=== PATIENT | male | born 1950 | race Caucasian/White ===

== ENCOUNTER 2017-12-21 19:40 | Inpatient (IN) | payer MEDICARE, MEDICAID ==
[~2017-12-21] VITALS: Ht 170.2 cm; Wt 65.8 kg
[2017-12-21 19:45] VITALS: BP 110/70
[2017-12-21] MEDS ORDERED: ACETAMINOPHEN325 M1 ORAL (19:51)
[2017-12-21] MEDS ORDERED: DUONEB 0.5-3(2.53 ML HHN (19:51)
[2017-12-21] MEDS ORDERED: ZYPREXA10 MG ORAL (19:51)
[2017-12-21] MEDS ORDERED: ATIVAN1 MG ORAL (19:51)
[2017-12-21] MEDS ORDERED: RESTORIL7.5 MG ORAL (19:51)
[2017-12-21] MEDS ORDERED: HALOPERIDOL1 MG ORAL (19:51)
[2017-12-21] MEDS ORDERED: REMERON15 MG ORAL (19:51)
[2017-12-21] MEDS ORDERED: DEPAKOTE250 MG PO (19:51)
--- NOTE | 2017-12-21 19:59 | Emergency Room Report ---
History of Present Illness General Chief Complaint: General Complaint Source: Patient, Medical Record, PMD Present Illness HPI [id number] sent from SNF for ?AMS HPI limited as patient with FTT, poor appetite Patient has audible wheezing, nods head when asked if he has COPD VSS at SNF, afebrile History of : CVA, HTN, COPD, DM, sezrue, bipolar, schizoaffective Allergies: Coded Allergies: No Known Allergies (Unverified , 12/21/17) Patient History Past Medical History: CVA/TIA, other - see hpi Past Surgical History: none, unable to obtain Pertinent Family History: none, unable to obtain Social History: Denies: smoking, alcohol use, drug use Nursing Documentation-PMH Hx Hypertension: Yes Hx COPD: Yes Hx Diabetes: Yes Hx Cerebrovascular Accident: Yes Hx Seizures: Yes Review of Systems All Other Systems: limited - AMS Physical Exam Vital Signs Date Time Temp Pulse Resp B/P (MAP) Pulse Ox O2 Delivery O2 Flow Rate FiO2 12/21/17 19:35 98.5 83 20 110/70 95 Room Air 98.4 Sp02 EP Interpretation: reviewed, normal General Appearance: normal inspection, well appearing, no apparent distress, alert, GCS 15, non-toxic, cachetic, thin, Chronically Ill Head: normocephalic, atraumatic Eyes: bilateral eye PERRL, bilateral eye EOMI ENT: normal ENT inspection, hearing grossly normal, normal pharynx, no angioedema, normal voice, TMs + canals normal, uvula midline, moist mucus membranes Neck: normal inspection, full range of motion, supple, thyroid normal, no meningismus, no bony tend Respiratory: normal inspection, lungs clear, normal breath sounds, no rhonchi, no respiratory distress, no retraction, no accessory muscle use, no wheezing, speaking full sentences Cardiovascular #1: regular rate, rhythm, no edema, no JVD, normal capillary refill Gastrointestinal: normal inspection, normal bowel sounds, non tender, soft, no mass, no peritonitis, non-distended, no guarding, no hernia, no pulsatile mass Genitourinary: no CVA tenderness Musculoskeletal: normal inspection, back normal, normal range of motion, no calf tenderness, pelvis stable, Melvina's Sign negative Neurologic: normal inspection, alert, oriented x3, responsive, flame burner III-XII nml as tested, motor strength/tone normal, cerebellar normal, normal gait, speech normal Psychiatric: normal inspection, judgement/insight normal, mood/affect normal, no suicidal/homicidal ideation, no delusions Skin: normal inspection, normal color, no rash Lymphatic: normal inspection, no adenopathy Medical Decision Making Diagnostic Impression: Primary Impression: FTT (failure to thrive) in adult Additional Impression: COPD exacerbation ER Course VSS, afebrile Patient having COPD exacerbation - improved with nebs, steroids, IV azithro No obvious PNA seen on CXR on ED review Labs: No acute abnormals Endorsed for tele to Dr Díaz as PMD at 845pm PMD requesting admit also for FTT, weakness, not eating EKG Diagnostic Results Rate: normal Rhythm: NSR ST Segments: no acute changes ASA given to the pt in ED: No Rhythm Strip Diag. Results EP Interpretation: yes Rate: 78 Rhythm: NSR, no PVC's, no ectopy Chest X-Ray Diagnostic Results Chest X-Ray Diagnostic Results : Chest X-Ray Ordered: Yes # of Views/Limited/Complete: 1 View Indication: Shortness of Breath EP Interpretation: Yes Interpretation: no consolidation, no effusion, no pneumothorax Impression: No acute disease Electronically Signed by: Dr Cliff Stallings mD Last Vital Signs Date Time Temp Pulse Resp B/P (MAP) Pulse Ox O2 Delivery O2 Flow Rate FiO2 12/21/17 19:35 98.5 83 20 110/70 95 Room Air 98.4 Status: unchanged Disposition: ADMITTED INPATIENT Condition: Serious CLIFF STALLINGS M.D. Dec 21, 2017 19:59
[2017-12-21] MEDS ORDERED: Albuterol ud Inhalation HHN ONE (20:30)
[2017-12-21] MEDS ORDERED: Azithromycin 500 MG in NS 275 ML IV ONE (20:30)
[2017-12-21] MEDS ORDERED: Solu-MEDROL 125mg Inj IVP ONE (20:30)
[2017-12-21 20:43] LABS: BASOPHILS % (AUTO) 1.3 % (0.0-2.0); EOSINOPHILS % (AUTO) 5.8 % (0.0-3.0); HEMATOCRIT 47.5 % (42.0-52.0); HEMOGLOBIN 15.9 G/DL (14.2-18.0); LYMPHOCYTES % (AUTO) 22.7 % (20.0-45.0); MEAN CORPUSCULAR VOLUME 86 FL (80-99); MONOCYTES % (AUTO) 10.9 % (1.0-10.0); NEUTROPHILS % (AUTO) 59.3 % (45.0-75.0); PLATELET COUNT 231 K/UL (150-450); RED BLOOD COUNT 5.53 M/UL (4.70-6.10); RED CELL DISTRIBUTION WIDTH 14.4 % (11.6-14.8)
[2017-12-21 20:48] LABS: ANION GAP 7 mmol/L (5-15); BLOOD UREA NITROGEN 28 mg/dL (7-18); CALCIUM 9.8 MG/DL (8.5-10.1); CARBON DIOXIDE 32 MMOL/L (21-32); CHLORIDE 100 MMOL/L (98-107); CREATININE 0.7 MG/DL (0.55-1.30); POTASSIUM 4.2 MMOL/L (3.5-5.1); SODIUM 138 MMOL/L (136-145)
[2017-12-21 20:54] LABS: ALANINE AMINOTRANSFERASE 14 U/L (12-78); ALBUMIN 3.6 G/DL (3.4-5.0); ALBUMIN/GLOBULIN RATIO 0.8 (1.0-2.7); ALKALINE PHOSPHATASE 108 U/L (46-116); ASPARTATE AMINO TRANSFERASE 17 U/L (15-37); BILIRUBIN,TOTAL 0.5 MG/DL (0.2-1.0); CREATINE KINASE 76 U/L (26-308)
[2017-12-21] MEDS ORDERED: Azithromycin 500mg Inj IV ONE (21:06)
[2017-12-21 21:11] LABS: APPEARANCE,URINE CLEAR; BILIRUBIN, URINE NEGATIVE (NEGATIVE); GLUCOSE, URINE (UA) NEGATIVE (NEGATIVE); KETONES,URINE NEGATIVE (NEGATIVE); LEUKOCYTE ESTERASE ,URINE 2+ (NEGATIVE); NITRITE,URINE POSITIVE (NEGATIVE); PH,URINE 6 (4.5-8.0); PROTEIN,URINE NEGATIVE (NEGATIVE); UROBILINOGEN,URINE NORMAL MG/DL (0.0-1.0)
[2017-12-21 21:13] LABS: COLOR,URINE YELLOW
[2017-12-21 21:30] VITALS: BP 94/79
[2017-12-21] MEDS ORDERED: Nitroglycerin Subl 0.4mg tab SL PRN (22:15)
[2017-12-21] MEDS ORDERED: Morphine Sulfate 2mg/ml Inj IVP PRN (22:15)
[2017-12-21] MEDS ORDERED: Promethazine/Codeine 5ml UD ORAL PRN (22:15)
[2017-12-21] MEDS ORDERED: Albuterol/Ipratropium 3ml neb HHN PRN (22:15)
[2017-12-21] MEDS ORDERED: LORazepam Inj 2mg/ml 1ml IV PRN (22:15)
[2017-12-21 22:30] VITALS: BP 110/72
[2017-12-21 23:20] VITALS: BP 99/42
[2017-12-22] VITALS: BP 113/71
[2017-12-22] MEDS: Solu-MEDROL 125mg Inj IV SCH ×5 (00:23→23:33)
[2017-12-22 04:00] VITALS: BP 93/62
[2017-12-22] MEDS ORDERED: Zosyn 3.375gm inj ONE (05:30)
[2017-12-22] MEDS: Zosyn 3.375gm q8h **Extended infusion IVPB SCH ×4 (05:47→14:15)
[2017-12-22 05:57] VITALS: BP 95/63
[2017-12-22] MEDS ORDERED: Piperacillin/Tazobactam 2.25 GM in D5W 55 ML IV SCH (06:00)
[2017-12-22 07:50] VITALS: BP 97/61
[2017-12-22] MEDS ORDERED: Heparin 5000 units/ml inj SUBQ SCH (09:00)
[2017-12-22] MEDS ORDERED: Theophylline ER 100mg ORAL SCH (09:00)
--- NOTE | 2017-12-22 10:12 | Diagnostic Imaging Report ---
Indication: Cough, shortness of breath Technique: One view of the chest Comparison: none Findings: Patient is rotated to the left. The lungs and pleural spaces are clear. The heart size is borderline enlarged. The aorta is tortuous and ectatic. Upper mediastinum is unremarkable. Impression: No acute process. Findings as noted
[2017-12-22] MEDS ORDERED: NovoLOG Insulin Flexpen SUBQ SCH (11:30)
[2017-12-22 12:00] VITALS: BP 108/67
--- NOTE | 2017-12-22 13:15 | Consultation ---
History of Present Illness General Date patient seen: Dec 22, 2017 Chief Complaint: General Complaint Reason for Consultation: dyspnea Present Illness HPI 67 year old male with History of CVA, HTN, COPD, DM, seizure, bipolar, schizoaffective sent from SNF for AMS, FTT, poor appetite Patient has audible wheezing, nods head when asked if he has COPD. Pt is admitted to telemetry for acute exacerbation of COPD. Allergies: Coded Allergies: No Known Allergies (Unverified , 12/21/17) Medication History Scheduled Divalproex Sodium* (Depakote*), 500 MG PO TID, (Reported) Haloperidol* (Haldol*), 5 MG ORAL BID, (Reported) Mirtazapine* (Remeron*), 15 MG ORAL BEDTIME, (Reported) Olanzapine* (Zyprexa*), 10 MG ORAL QHS, (Reported) Temazepam* (Restoril*), 7.5 MG ORAL EVERY OTHER DAY, (Reported) Scheduled PRN Acetaminophen* (Acetaminophen 325MG Tablet*), 650 MG ORAL Q4H PRN for For Pain, (Reported) Ipratropium/Albuterol Sulfate (DuoNeb 0.5-3(2.5)mg/3ml), 3 ML HHN Q4HR PRN for Shortness of Breath, (Reported) Lorazepam* (Ativan*), 1 MG ORAL EVERY 6 HOURS PRN for For Anxiety, (Reported) Patient History Healthcare decision maker SOBIA MCDONALD Resuscitation status Full Code Advanced Directive on File Past Medical/Surgical History Past Medical/Surgical History: (1) Dementia (2) Cerebrovascular accident (CVA) Review of Systems All Other Systems: negative except mentioned in HPI Physical Exam General Appearance: WD/WN Lines, tubes and drains: peripheral HEENT: normocephalic, atraumatic Neck: non-tender, normal alignment Respiratory/Chest: chest wall non-tender, lungs clear Cardiovascular/Chest: normal peripheral pulses, normal rate Abdomen: normal bowel sounds, non tender Genitourinary/Rectal: normal genital exam, normal rectal exam Extremities: non-tender Skin Exam: normal pigmentation Last 24 Hour Vital Signs Date Time Temp Pulse Resp B/P (MAP) Pulse Ox O2 Delivery O2 Flow Rate FiO2 12/22/17 07:57 80 18 Room Air 21 12/22/17 07:50 97.7 63 21 97/61 96 Nasal Cannula 2.0 97.7 12/22/17 05:57 60 95/63 12/22/17 04:00 60 12/22/17 04:00 97.0 59 21 93/62 98 Nasal Cannula 2.0 97.0 12/22/17 00:00 66 12/22/17 00:00 97.3 72 21 113/71 95 Nasal Cannula 2.0 97.3 12/21/17 23:25 81 12/21/17 23:20 97.2 66 22 99/42 91 Room Air 97.2 12/21/17 23:10 98.4 77 23 110/72 96 Room Air 21 98.4 12/21/17 22:30 77 23 110/72 96 Room Air 12/21/17 21:30 85 24 94/79 95 Room Air 12/21/17 20:56 81 16 100 Room Air 21 12/21/17 20:49 87 24 Room Air 21 12/21/17 20:46 86 24 96 Room Air 21 12/21/17 19:45 98.4 20 110/70 95 Room Air 98.4 12/21/17 19:35 98.5 83 20 110/70 95 Room Air 98.4 Intake and Output 12/21/17 12/22/17 19:00 07:00 Intake Total 27.5 ml Balance 27.5 ml Intake Oral 0 ml IV Total 27.5 ml # Voids 1 Laboratory Tests Test 12/21/17 20:20 White Blood Count 7.0 K/UL (4.8-10.8) Red Blood Count 5.53 M/UL (4.70-6.10) Hemoglobin 15.9 G/DL (14.2-18.0) Hematocrit 47.5 % (42.0-52.0) Mean Corpuscular Volume 86 FL (80-99) Mean Corpuscular Hemoglobin 28.7 PG (27.0-31.0) Mean Corpuscular Hemoglobin Concent 33.4 G/DL (32.0-36.0) Red Cell Distribution Width 14.4 % (11.6-14.8) Platelet Count 231 K/UL (150-450) Mean Platelet Volume 7.3 FL (6.5-10.1) Neutrophils (%) (Auto) 59.3 % (45.0-75.0) Lymphocytes (%) (Auto) 22.7 % (20.0-45.0) Monocytes (%) (Auto) 10.9 % (1.0-10.0) H Eosinophils (%) (Auto) 5.8 % (0.0-3.0) H Basophils (%) (Auto) 1.3 % (0.0-2.0) Urine Color Yellow Urine Appearance Clear Urine pH 6 (4.5-8.0) Urine Specific [place] 1.020 (1.005-1.035) Urine Protein Negative (NEGATIVE) Urine Glucose (UA) Negative (NEGATIVE) Urine Ketones Negative (NEGATIVE) Urine Occult Blood 1+ (NEGATIVE) H Urine Nitrite Positive (NEGATIVE) H Urine Bilirubin Negative (NEGATIVE) Urine Urobilinogen Normal MG/DL (0.0-1.0) Urine Leukocyte Esterase 2+ (NEGATIVE) H Urine RBC 5-10 /HPF (0 - 0) H Urine WBC 2-4 /HPF (0 - 0) Urine Squamous Epithelial Cells None /LPF (NONE/OCC) Urine Bacteria Few /HPF (NONE) Sodium Level 138 MMOL/L (136-145) Potassium Level 4.2 MMOL/L (3.5-5.1) Chloride Level 100 MMOL/L (98-107) Carbon Dioxide Level 32 MMOL/L (21-32) Anion Gap 7 mmol/L (5-15) Blood Urea Nitrogen 28 mg/dL (7-18) H Creatinine 0.7 MG/DL (0.55-1.30) Estimat Glomerular Filtration Rate > 60 mL/min (>60) Glucose Level 122 MG/DL (74-106) H Calcium Level 9.8 MG/DL (8.5-10.1) Total Bilirubin 0.5 MG/DL (0.2-1.0) Aspartate Amino Transf (AST/SGOT) 17 U/L (15-37) Alanine Aminotransferase (ALT/SGPT) 14 U/L (12-78) Alkaline Phosphatase 108 U/L (46-116) Total Creatine Kinase 76 U/L (26-308) Troponin I 0.000 ng/mL (0.000-0.056) Total Protein 8.4 G/DL (6.4-8.2) H Albumin 3.6 G/DL (3.4-5.0) Globulin 4.8 g/dL Albumin/Globulin Ratio 0.8 (1.0-2.7) L Microbiology Date/Time Source Procedure Growth Status 12/21/17 20:20 Nasal Nares Influenza Types A,B Antigen (DUNIA) - Final Complete Height (Feet): 5 Height (Inches): 7.00 Weight (Pounds): 145 Medications Current Medications Medications (Trade) Dose Ordered Sig/Sneha Route PRN Reason Start Time Stop Time Status Last Admin Dose Admin Albuterol/ Ipratropium (Albuterol/ Ipratropium) 3 ml EVERY 4 HOURS PRN HHN dyspnea 12/21/17 22:15 12/26/17 22:14 Dextrose (Dextrose 50%) STAT PRN IV Hypoglycemia 12/22/17 07:30 01/21/18 07:29 Divalproex Sodium (Depakote) 500 mg TID ORAL 12/22/17 09:00 01/21/18 08:59 12/22/17 12:23 Haloperidol (Haldol) 5 mg BID ORAL 12/22/17 09:00 01/21/18 08:59 12/22/17 08:54 Heparin Sodium (Porcine) (Heparin 5000 units/ml) 5,000 units EVERY 12 HOURS SUBQ 12/22/17 09:00 01/21/18 08:59 12/22/17 08:55 Insulin Aspart (NovoLOG) BEFORE MEALS AND HS SUBQ 12/22/17 11:30 01/21/18 11:29 12/22/17 12:23 Lorazepam (Ativan 2mg/ml 1ml) 0.5 mg Q4H PRN IV For Anxiety 12/21/17 22:15 12/28/17 22:14 Methylprednisolone Sodium Succinate (Solu-MEDROL) 60 mg EVERY 6 HOURS IV 12/22/17 00:00 01/21/18 00:00 12/22/17 12:26 Mirtazapine (Remeron) 15 mg BEDTIME ORAL 12/22/17 21:00 01/21/18 20:59 Morphine Sulfate (Morphine Sulfate) 2 mg EVERY 4 HOURS PRN IVP severe pain 7-10 12/21/17 22:15 12/28/17 22:14 Nitroglycerin (Ntg) 0.4 mg Q5M X 3 DOSES PRN SL Prn Chest Pain 12/21/17 22:15 01/20/18 22:14 Ondansetron HCl (Zofran) 4 mg Q6H PRN IVP Nausea & Vomiting 12/21/17 22:15 01/20/18 22:14 Piperacillin Sod/ Tazobactam Sod 3.375 gm/Sodium Chloride 110 ml @ 27.5 mls/hr EVERY 8 HOURS IVPB 12/22/17 06:00 12/26/17 05:59 12/22/17 05:47 Promethazine HCl/ Codeine (Phenergan with Codeine) 5 ml EVERY 6 HOURS PRN ORAL cough 12/21/17 22:15 01/20/18 22:14 Sodium Chloride 1,000 ml @ 75 mls/hr [id number] IV 12/22/17 08:00 01/21/18 07:59 12/22/17 08:55 Temazepam (Restoril) 15 mg HSPRN PRN ORAL Insomnia 12/21/17 22:15 12/28/17 22:14 Theophylline (Caden-Dur) 100 mg EVERY 12 HOURS ORAL 12/22/17 09:00 01/21/18 08:59 12/22/17 08:54 Assessment/Plan Problem List: (1) COPD exacerbation ICD Codes: J44.1 - Chronic obstructive pulmonary disease with (acute) exacerbation SNOMED: 408060893 (2) FTT (failure to thrive) in adult ICD Codes: R62.7 - Adult failure to thrive SNOMED: 365759657 (3) Dementia ICD Codes: F03.90 - Unspecified dementia without behavioral disturbance SNOMED: 67099310 (4) Cerebrovascular accident (CVA) ICD Codes: I63.9 - Cerebral infarction, unspecified SNOMED: 886798169 Assessment/Plan respiratory treatment IV steroids check sputum swallow evaluation pt/ot dvt prophylaxis ARASH VELIZ Dec 22, 2017 13:15
[2017-12-22 16:00] VITALS: BP 95/56
[2017-12-22] MEDS ORDERED: Nitroglycerin Subl 0.4mg tab SL PRN (16:00)
[2017-12-22] MEDS ORDERED: Albuterol/Ipratropium 3ml neb HHN PRN (17:00)
[2017-12-22] MEDS ORDERED: Morphine Sulfate 2mg/ml Inj IVP PRN (17:00)
[2017-12-22] MEDS: NovoLOG Insulin Flexpen SUBQ SCH ×2 (17:30→21:00)
[2017-12-22] MEDS: Depakote 500mg tab ORAL SCH (18:00)
[2017-12-22] MEDS ORDERED: Promethazine/Codeine 5ml UD ORAL PRN (18:00)
[2017-12-22] MEDS: LORazepam Inj 2mg/ml 1ml IV PRN (18:57)
[2017-12-22] MEDS: Haloperidol 5mg/ml Inj IM SCH (20:14)
--- NOTE | 2017-12-22 20:32 | History and Physical Report ---
DATE OF ADMISSION: 12/21/2017 TIME SEEN: 2 p.m. CONSULTANTS: 1. Kemar Jordan M.D. 2. Veronica Rivera M.D. CHIEF COMPLAINT: COPD exacerbation, shortness of breath, weakness, lethargy, and failure to thrive. BRIEF HISTORY: This is a 67-year-old male from [facility], presented with increased shortness of breath for two days, wheezing, was weak, and not really eating. The patient sent to [facility], diagnosed as above, admitted to telemetry for further care. Currently, confused, sitting on bed. No complaint. Slight short of breath. PAST MEDICAL HISTORY: Encephalopathy, failure to thrive, weakness, and COPD. PAST SURGICAL HISTORY: None. MEDICATIONS: Include Remeron, NovoLog, , Haldol, heparin, Caden-Dur, methylprednisolone, lorazepam, Zofran, and nitroglycerin. ALLERGIES: Denies. SOCIAL HISTORY: Positive smoking. No alcohol. No intravenous drug abuse. FAMILY HISTORY: Noncontributory. REVIEW OF SYSTEMS: No chest pain. Slight short of breath. No nausea, vomiting, or diarrhea. PHYSICAL EXAMINATION: GENERAL: Slightly confused in bed, oriented x1, in no acute distress. Slight short of breath. VITAL SIGNS: Showed temperature is 97 degrees, pulse 80, respirations 18, and blood pressure 97/61. CARDIOVASCULAR: No murmur. LUNGS: Poor exchange bilaterally. ABDOMEN: Bowel sounds positive. Nontender. Nondistended. EXTREMITIES: Show no cyanosis or edema. NEUROLOGIC: The patient moves all extremities, but slightly weak. LABORATORY AND DIAGNOSTIC DATA: Show CBC is normal. BUN 28 and glucose 132. Troponin 0.0. Otherwise, BMP is normal. Urinalysis shows 1+ occult blood and positive nitrites, otherwise normal. ASSESSMENT: 1. Chronic obstructive pulmonary disease exacerbation. 2. Urinary tract infection. 3. Weakness. 4. Failure to thrive. 5. Encephalopathy. 6. History of cerebrovascular accident. PLAN: 1. Continue premeds. 2. OT/PT and dietary evaluation. 3. CBC and BMP in the morning. 4. Dr. Jordan, Dr. Rivera, and Dr. Gurrola to consult. 5. We will continue to follow up this patient medically. Cam Díaz D.O. DR: Rosales JOB#: [id number] CC:
[2017-12-22] MEDS: Heparin 5000 units/ml inj SUBQ SCH (21:00)
[2017-12-22] MEDS: Theophylline ER 100mg ORAL SCH (21:00)
[2017-12-22] MEDS: Piperacillin/Tazobactam 3.375 GM in NS 110 ML IVPB SCH (22:00)
[2017-12-23] VITALS: BP 120/75
[2017-12-23 04:00] VITALS: BP 114/61
[2017-12-23] MEDS: Solu-MEDROL 125mg Inj IV SCH ×4 (05:43→23:58)
[2017-12-23] MEDS: Piperacillin/Tazobactam 3.375 GM in NS 110 ML IVPB SCH (05:43)
[2017-12-23] MEDS: NovoLOG Insulin Flexpen SUBQ SCH ×4 (06:04→20:57)
[2017-12-23 08:00] VITALS: BP 131/64
--- NOTE | 2017-12-23 08:35 | Diagnostic Imaging Report ---
Indication: Dyspnea Technique: One view of the chest Comparison: 12/21/2017 Findings: Suboptimal inspiration. Minimal left basilar atelectasis. There is equivocal mild interstitial prominence and central bronchial wall thickening, appearing similar to the prior study. Lungs and pleural spaces otherwise clear. Heart size is upper limits of normal. The aorta is tortuous and ectatic. Impression: Mild interstitial prominence and bronchial wall thickening, suspect on the basis of chronic bronchitis changes but component of acute interstitial edema also a possibility. Left basilar subsegmental atelectasis
[2017-12-23] MEDS: Heparin 5000 units/ml inj SUBQ SCH ×3 (09:00→20:55)
[2017-12-23] MEDS: Depakote 500mg tab ORAL SCH ×3 (09:09→17:47)
[2017-12-23] MEDS: Haloperidol 5mg/ml Inj IM SCH ×2 (09:09→20:54)
[2017-12-23] MEDS: Theophylline ER 100mg ORAL SCH ×2 (09:09→20:54)
[2017-12-23 12:00] VITALS: BP 127/74
--- NOTE | 2017-12-23 12:21 | General Progress Note ---
Assessment/Plan Problem List: (1) UTI (urinary tract infection) ICD Codes: N39.0 - Urinary tract infection, site not specified SNOMED: 87690130 (2) Cerebrovascular accident (CVA) ICD Codes: I63.9 - Cerebral infarction, unspecified SNOMED: 250185114 (3) COPD exacerbation ICD Codes: J44.1 - Chronic obstructive pulmonary disease with (acute) exacerbation SNOMED: 573156831 (4) Dementia ICD Codes: F03.90 - Unspecified dementia without behavioral disturbance SNOMED: 09813680 (5) FTT (failure to thrive) in adult ICD Codes: R62.7 - Adult failure to thrive SNOMED: 052865347 Status: unchanged Assessment/Plan o2 pulm tx abx ot pt diet cbc bmp am Subjective Constitutional: Reports: weakness Allergies: Coded Allergies: No Known Allergies (Unverified , 12/21/17) All Systems: reviewed and negative except above Subjective sleepy calm in bed Objective Last 24 Hour Vital Signs Date Time Temp Pulse Resp B/P (MAP) Pulse Ox O2 Delivery O2 Flow Rate FiO2 12/23/17 08:00 98.0 90 20 131/64 97 98.0 12/23/17 07:26 91 18 Room Air 21 12/23/17 04:00 97.8 81 18 114/61 96 Room Air 97.8 12/23/17 00:00 98.1 93 20 120/75 97 Room Air 98.1 12/22/17 20:02 82 18 Room Air 21 12/22/17 16:00 98.1 91 19 95/56 93 98.1 12/22/17 14:15 84 16 95 Room Air 21 12/22/17 14:04 79 22 96 Nasal Cannula 2.0 28 Intake and Output 12/22/17 12/23/17 19:00 07:00 Intake Total 30 ml 597.5 ml Balance 30 ml 597.5 ml Intake Oral 30 ml 120 ml IV Total 477.5 ml # Voids 2 Height (Feet): 5 Height (Inches): 7.00 Weight (Pounds): 145 General Appearance: lethargic EENT: normal ENT inspection Neck: normal alignment Cardiovascular: normal peripheral pulses, normal rate, regular rhythm Respiratory/Chest: decreased breath sounds Abdomen: normal bowel sounds, non tender, soft Extremities: normal inspection Edema: no edema noted Arm (L), no edema noted Arm (R), no edema noted Leg (L), no edema noted Leg (R), no edema noted Pedal (L), no edema noted Pedal (R), no edema noted Generalized Neurologic: motor weakness Skin: normal pigmentation, warm/dry NICOLE REHMAN Dec 23, 2017 12:21
[2017-12-23] MEDS ORDERED: Azithromycin 250mg tab ORAL ONE (14:00)
[2017-12-23] MEDS: cefTRIAXone 1 GM in NS 55 ML IVPB SCH (15:26)
[2017-12-23 16:00] VITALS: BP 113/65
[2017-12-23] MEDS ORDERED: NS 275ml ONE (17:54)
[2017-12-23] MEDS ORDERED: Tubing IV Secondary IV ONE (17:54)
[2017-12-23 20:00] VITALS: BP 111/61
--- NOTE | 2017-12-23 20:45 | Consultation ---
DATE OF CONSULTATION: 12/21/2017 INFECTIOUS DISEASES CONSULTATION PRIMARY ATTENDING PHYSICIAN: Cam Díaz D.O. REASON FOR CONSULT: COPD exacerbation. HISTORY OF PRESENT ILLNESS: This is a 67-year-old white male, who is a [facility] resident, admitted yesterday because of failure to thrive, poor appetite, and has some wheezing. PAST MEDICAL HISTORY: Significant for diabetes mellitus, COPD, schizoaffective disorder, bipolar type, and seizure disorder. MEDICATIONS: Zosyn, heparin, Remeron, temazepam, theophylline, haloperidol, Depakote, methylprednisone, promethazine, insulin, ipratropium, albuterol inhaler, morphine, sodium chloride, lorazepam, and nitroglycerin. ALLERGIES: No known drug allergies. SOCIAL HISTORY: He was a smoker before, still is active smoker. half-way resident. Single. REVIEW OF SYSTEMS: Limited because the patient states he answers yes or no to every question, says that he is hungry, has no pain and no other symptoms. PHYSICAL EXAMINATION: GENERAL APPEARANCE: No acute distress. VITAL SIGNS: Temperature 98 degrees, pulse 90, and blood pressure 131/64. HEAD AND NECK: No oral lesion. He has no teeth. HEART: S1 and S2. Regular. LUNGS: Decreased sounds bilaterally. ABDOMEN: Soft and nontender. EXTREMITIES: He has no edema. LABORATORY AND DIAGNOSTIC DATA: Sodium 138, potassium 4.2, chloride 100, bicarbonate 32, BUN 28, creatinine 0.7 and glucose 122. WBC 7000, hemoglobin 15.9, hematocrit 47.5, and platelets is 231,000. IMPRESSION: 1. Chronic obstructive pulmonary disease exacerbation. The patient still is active smoker. 2. Diabetes mellitus. 3. Hypertension. 4. Seizure disorder. RECOMMENDATIONS: We will change Zosyn to Rocephin and Zithromax. We will follow up the labs and cultures. At the end of my exam, I thank, Dr. Cam Díaz, for involving me in the care of this patient. Yasir Britton M.D. DR: JEFFREY JOB#: [id number] CC: SAVANNA
--- NOTE | 2017-12-23 22:29 | Pulmonology Progress Note ---
Assessment/Plan Problems: (1) COPD exacerbation (2) FTT (failure to thrive) in adult (3) Dementia (4) Cerebrovascular accident (CVA) Assessment/Plan respiratory treatment iv abx titrate fio2 to sat of 92% chest pt incentive spirometry check sputum dvt prophylaxis aspiration precaution. Subjective ROS Limited/Unobtainable: No Interval Events: comfortable Allergies: Coded Allergies: No Known Allergies (Unverified , 12/21/17) Objective Last 24 Hour Vital Signs Date Time Temp Pulse Resp B/P (MAP) Pulse Ox O2 Delivery O2 Flow Rate FiO2 12/23/17 20:00 96.8 74 18 111/61 92 Room Air 96.8 12/23/17 19:30 88 20 Room Air 21 12/23/17 16:00 97.3 84 20 113/65 94 97.3 12/23/17 12:00 97.7 81 19 127/74 93 97.7 12/23/17 08:00 98.0 90 20 131/64 97 98.0 12/23/17 07:26 91 18 Room Air 21 12/23/17 04:00 97.8 81 18 114/61 96 Room Air 97.8 12/23/17 00:00 98.1 93 20 120/75 97 Room Air 98.1 Intake and Output 12/22/17 12/23/17 19:00 07:00 Intake Total 30 ml 597.5 ml Balance 30 ml 597.5 ml Intake Oral 30 ml 120 ml IV Total 477.5 ml # Voids 2 Objective General Appearance: no apparent distress Head: normocephalic, atraumatic Eyes: bilateral eye PERRL, bilateral eye EOMI ENT: normal pharynx, no angioedema Neck: supple, thyroid normal Respiratory: lungs clear, +rhonchi Cardiovascular #1: regular rate, rhythm Gastrointestinal: non tender, soft Microbiology Date/Time Source Procedure Growth Status 12/21/17 20:20 Nasal Nares Influenza Types A,B Antigen (DUNIA) - Final Complete Current Medications Medications (Trade) Dose Ordered Sig/Sneha Route PRN Reason Start Time Stop Time Status Last Admin Dose Admin Albuterol/ Ipratropium (Albuterol/ Ipratropium) 3 ml Q4H PRN HHN dyspnea 12/22/17 17:00 12/27/17 16:59 Azithromycin (Zithromax) 250 mg DAILY ORAL 12/24/17 09:00 12/31/17 08:59 Ceftriaxone Sodium 1 gm/ Sodium Chloride 55 ml @ 110 mls/hr DAILY IVPB 12/23/17 15:00 12/30/17 14:59 12/23/17 15:26 Dextrose (Dextrose 50%) STAT PRN IV Hypoglycemia 12/22/17 16:00 01/21/18 15:59 Divalproex Sodium (Depakote) 500 mg TID ORAL 12/22/17 18:00 01/21/18 08:59 12/23/17 17:47 Haloperidol Lactate (Haldol) 5 mg Q12HR IM 12/22/17 21:00 01/21/18 20:59 12/23/17 20:54 Heparin Sodium (Porcine) (Heparin 5000 units/ml) 5,000 units EVERY 12 HOURS SUBQ 12/22/17 21:00 01/21/18 08:59 12/23/17 20:55 Insulin Aspart (NovoLOG) BEFORE MEALS AND HS SUBQ 12/22/17 17:30 01/21/18 17:29 12/23/17 20:57 Lorazepam (Ativan 2mg/ml 1ml) 0.5 mg Q4H PRN IV For Anxiety 12/22/17 16:00 12/28/17 15:59 12/22/17 18:57 Methylprednisolone Sodium Succinate (Solu-MEDROL) 60 mg EVERY 6 HOURS IV 12/22/17 18:00 01/21/18 00:00 12/23/17 17:47 Mirtazapine (Remeron) 15 mg BEDTIME ORAL 12/22/17 21:00 01/21/18 20:59 12/23/17 20:54 Morphine Sulfate (Morphine Sulfate) 2 mg Q4H PRN IVP Severe Pain (Pain Scale 7-10) 12/22/17 17:00 12/29/17 16:59 Nitroglycerin (Ntg) 0.4 mg Q5M X 3 DOSES PRN SL Prn Chest Pain 12/22/17 16:00 01/20/18 22:14 Ondansetron HCl (Zofran) 4 mg Q6H PRN IVP Nausea & Vomiting 12/22/17 16:15 01/20/18 22:14 Promethazine HCl/ Codeine (Phenergan with Codeine) 5 ml Q6H PRN ORAL cough 12/22/17 18:00 01/21/18 17:59 12/23/17 17:49 Sodium Chloride 1,000 ml @ 75 mls/hr [id number] IV 12/22/17 16:00 01/21/18 07:59 12/23/17 05:43 Temazepam (Restoril) 15 mg HSPRN PRN ORAL Insomnia 12/22/17 21:00 12/28/17 20:59 Theophylline (Caden-Dur) 100 mg EVERY 12 HOURS ORAL 12/22/17 21:00 01/21/18 08:59 12/23/17 20:54 ARASH VELIZ Dec 23, 2017 22:29
[2017-12-23] MEDS: LORazepam Inj 2mg/ml 1ml IV PRN (23:58)
[2017-12-24] VITALS: BP 106/62
[2017-12-24 04:00] VITALS: BP 116/71
[2017-12-24] MEDS: NovoLOG Insulin Flexpen SUBQ SCH ×5 (05:44→20:38)
[2017-12-24] MEDS: Solu-MEDROL 125mg Inj IV SCH ×4 (05:44→23:10)
[2017-12-24 08:00] VITALS: BP 133/72
--- NOTE | 2017-12-24 08:34 | General Progress Note ---
Assessment/Plan Problem List: (1) UTI (urinary tract infection) ICD Codes: N39.0 - Urinary tract infection, site not specified SNOMED: 10936149 (2) Cerebrovascular accident (CVA) ICD Codes: I63.9 - Cerebral infarction, unspecified SNOMED: 847582219 (3) COPD exacerbation ICD Codes: J44.1 - Chronic obstructive pulmonary disease with (acute) exacerbation SNOMED: 226760566 (4) Dementia ICD Codes: F03.90 - Unspecified dementia without behavioral disturbance SNOMED: 90434759 (5) FTT (failure to thrive) in adult ICD Codes: R62.7 - Adult failure to thrive SNOMED: 485943039 Status: unchanged Assessment/Plan o2 pulm tx abx ot pt diet cbc bmp am dc plan if clear Subjective Constitutional: Reports: weakness Allergies: Coded Allergies: No Known Allergies (Unverified , 12/21/17) All Systems: reviewed and negative except above Subjective sleepy calm in bed Objective Last 24 Hour Vital Signs Date Time Temp Pulse Resp B/P (MAP) Pulse Ox O2 Delivery O2 Flow Rate FiO2 12/24/17 08:00 96.8 66 20 133/72 97 96.8 12/24/17 04:00 96 Room Air 12/24/17 04:00 97.4 69 20 116/71 96 Room Air 97.4 12/24/17 00:00 97.5 60 18 106/62 95 Room Air 97.5 12/24/17 00:00 95 Room Air 12/23/17 20:00 96.8 74 18 111/61 92 Room Air 96.8 12/23/17 20:00 92 Room Air 12/23/17 19:30 88 20 Room Air 21 12/23/17 16:00 97.3 84 20 113/65 94 97.3 12/23/17 12:00 97.7 81 19 127/74 93 97.7 Intake and Output 12/23/17 12/24/17 19:00 07:00 Intake Total 1052.5 ml 850 ml Balance 1052.5 ml 850 ml Intake Oral 295 ml IV Total 757.5 ml 850 ml # Voids 6 2 Height (Feet): 5 Height (Inches): 7.00 Weight (Pounds): 145 General Appearance: lethargic EENT: normal ENT inspection Neck: normal alignment Cardiovascular: normal peripheral pulses, normal rate, regular rhythm Respiratory/Chest: chest wall non-tender, lungs clear, normal breath sounds Abdomen: normal bowel sounds, non tender, soft Extremities: normal inspection Edema: no edema noted Arm (L), no edema noted Arm (R), no edema noted Leg (L), no edema noted Leg (R), no edema noted Pedal (L), no edema noted Pedal (R), no edema noted Generalized Neurologic: motor weakness Skin: normal pigmentation, warm/dry NICOLE REHMAN Dec 24, 2017 08:34
[2017-12-24] MEDS: Heparin 5000 units/ml inj SUBQ SCH ×2 (09:00→20:36)
[2017-12-24] MEDS: Azithromycin 250mg tab ORAL SCH ×2 (09:00→09:36)
[2017-12-24] MEDS: Theophylline ER 100mg ORAL SCH ×4 (09:00→20:46)
[2017-12-24] MEDS: Depakote 500mg tab ORAL SCH ×3 (09:36→18:00)
[2017-12-24] MEDS: cefTRIAXone 1 GM in NS 55 ML IVPB SCH (09:36)
[2017-12-24] MEDS: Haloperidol 5mg/ml Inj IM SCH ×2 (09:37→20:23)
--- NOTE | 2017-12-24 10:46 | Pulmonology Progress Note ---
Assessment/Plan Problems: (1) COPD exacerbation (2) FTT (failure to thrive) in adult (3) Dementia (4) Cerebrovascular accident (CVA) Assessment/Plan eating wee. no new complaint respiratory treatment iv abx titrate fio2 to sat of 92% chest pt incentive spirometry check sputum dvt prophylaxis aspiration precaution. Subjective ROS Limited/Unobtainable: No Constitutional: Reports: no symptoms HEENT: Repors: no symptoms Allergies: Coded Allergies: No Known Allergies (Unverified , 12/21/17) Objective Last 24 Hour Vital Signs Date Time Temp Pulse Resp B/P (MAP) Pulse Ox O2 Delivery O2 Flow Rate FiO2 12/24/17 08:00 96.8 66 20 133/72 97 96.8 12/24/17 04:00 96 Room Air 12/24/17 04:00 97.4 69 20 116/71 96 Room Air 97.4 12/24/17 00:00 97.5 60 18 106/62 95 Room Air 97.5 12/24/17 00:00 95 Room Air 12/23/17 20:00 96.8 74 18 111/61 92 Room Air 96.8 12/23/17 20:00 92 Room Air 12/23/17 19:30 88 20 Room Air 21 12/23/17 16:00 97.3 84 20 113/65 94 97.3 12/23/17 12:00 97.7 81 19 127/74 93 97.7 Intake and Output 12/23/17 12/24/17 19:00 07:00 Intake Total 1052.5 ml 850 ml Balance 1052.5 ml 850 ml Intake Oral 295 ml IV Total 757.5 ml 850 ml # Voids 6 2 Objective General Appearance: no apparent distress Head: normocephalic, atraumatic Eyes: bilateral eye PERRL, bilateral eye EOMI ENT: normal pharynx, no angioedema Neck: supple, thyroid normal Respiratory: lungs clear, +rhonchi Cardiovascular #1: regular rate, rhythm Gastrointestinal: non tender, soft Microbiology Date/Time Source Procedure Growth Status 12/21/17 20:20 Nasal Nares MRSA Culture - Final NO METHICILLIN RESISTANT STAPH AUREUS... Complete 12/21/17 20:20 Nasal Nares Influenza Types A,B Antigen (DUNIA) - Final Complete 12/21/17 20:20 Rectum VRE Culture - Final NO VANCOMYCIN RESISTANT ENTEROCOCCUS ... Complete Current Medications Medications (Trade) Dose Ordered Sig/Sneha Route PRN Reason Start Time Stop Time Status Last Admin Dose Admin Albuterol/ Ipratropium (Albuterol/ Ipratropium) 3 ml Q4H PRN HHN dyspnea 12/22/17 17:00 12/27/17 16:59 Azithromycin (Zithromax) 250 mg DAILY ORAL 12/24/17 09:00 12/31/17 08:59 12/24/17 09:36 Ceftriaxone Sodium 1 gm/ Sodium Chloride 55 ml @ 110 mls/hr DAILY IVPB 12/23/17 15:00 12/30/17 14:59 12/24/17 09:36 Dextrose (Dextrose 50%) STAT PRN IV Hypoglycemia 12/22/17 16:00 01/21/18 15:59 Divalproex Sodium (Depakote) 500 mg TID ORAL 12/22/17 18:00 01/21/18 08:59 12/24/17 09:36 Haloperidol Lactate (Haldol) 5 mg Q12HR IM 12/22/17 21:00 01/21/18 20:59 12/24/17 09:37 Heparin Sodium (Porcine) (Heparin 5000 units/ml) 5,000 units EVERY 12 HOURS SUBQ 12/22/17 21:00 01/21/18 08:59 12/23/17 20:55 Insulin Aspart (NovoLOG) BEFORE MEALS AND HS SUBQ 12/22/17 17:30 01/21/18 17:29 12/24/17 05:44 Lorazepam (Ativan 2mg/ml 1ml) 0.5 mg Q4H PRN IV For Anxiety 12/22/17 16:00 12/28/17 15:59 12/23/17 23:58 Methylprednisolone Sodium Succinate (Solu-MEDROL) 60 mg EVERY 6 HOURS IV 12/22/17 18:00 01/21/18 00:00 12/24/17 05:44 Mirtazapine (Remeron) 15 mg BEDTIME ORAL 12/22/17 21:00 01/21/18 20:59 12/23/17 20:54 Morphine Sulfate (Morphine Sulfate) 2 mg Q4H PRN IVP Severe Pain (Pain Scale 7-10) 12/22/17 17:00 12/29/17 16:59 Nitroglycerin (Ntg) 0.4 mg Q5M X 3 DOSES PRN SL Prn Chest Pain 12/22/17 16:00 01/20/18 22:14 Ondansetron HCl (Zofran) 4 mg Q6H PRN IVP Nausea & Vomiting 12/22/17 16:15 01/20/18 22:14 Promethazine HCl/ Codeine (Phenergan with Codeine) 5 ml Q6H PRN ORAL cough 12/22/17 18:00 01/21/18 17:59 12/23/17 17:49 Sodium Chloride 1,000 ml @ 75 mls/hr [id number] IV 12/22/17 16:00 01/21/18 07:59 12/23/17 23:58 Temazepam (Restoril) 15 mg HSPRN PRN ORAL Insomnia 12/22/17 21:00 12/28/17 20:59 Theophylline (Caden-Dur) 100 mg EVERY 12 HOURS ORAL 12/22/17 21:00 01/21/18 08:59 12/24/17 09:36 ARASH VELIZ Dec 24, 2017 10:46
[2017-12-24] MEDS ORDERED: Tubing IV Secondary IV ONE (11:09)
[2017-12-24 12:00] VITALS: BP 121/73
[2017-12-24] MEDS ORDERED: LORazepam Inj 2mg/ml 1ml IV PRN (15:30)
[2017-12-24] MEDS ORDERED: Haloperidol Decanoate 50mg Inj IM ONE (15:45)
[2017-12-24] MEDS ORDERED: Haloperidol Decanoate 50mg Inj IM SCH ×2 (15:45→16:00)
[2017-12-24 16:00] VITALS: BP 119/74
[2017-12-24] MEDS ORDERED: LORazepam Inj 2mg/ml 1ml IM PRN ×2 (16:00)
[2017-12-24 20:00] VITALS: BP 143/87
--- NOTE | 2017-12-24 21:00 | Consultation ---
DATE OF CONSULTATION: 12/24/2017 HISTORY OF PRESENT ILLNESS: The patient is a 67-year-old male patient with weakness and failure to thrive. He continues to have some confusion, disorganized thought process, and mood lability worsened by stress that is why he does require daily psychiatric consultation. Reason why he was admitted to [facility] because weakness, failure to thrive, however, he has been extremely agitated. He has to be placed on two-point restraints. He is on one to one sitter before. Now he is very agitated irritable, trying to strike out at staff so there was a daily psychiatric consultation requested by Dr. Cam Díaz agitation and mood lability. PSYCHIATRIC HISTORY: Paranoid schizophrenia, acute exacerbation. Multiple psychiatric admissions. ALLERGIES: No known drug allergies. SUBSTANCE ABUSE HISTORY: Denies drug and alcohol use. MEDICAL HISTORY: Neuropathy, lower extremity weakness, failure to thrive. STRENGTHS: He has a place to live. WEAKNESSES: He is impulsive and support system. MENTAL STATUS EXAMINATION: Appearance is disheveled. Attitude irritable and agitated. Affect guarded and restricted. Intellect poor. Mood depressed and anxious. Motor activity, psychomotor agitation. Attention span is poor. Orientation x2. Speech is low volume and slurred. Thought process, disorganized and illogical. Thought content, auditory hallucinations and paranoid delusions. Insight and judgment is poor. DIAGNOSES: Paranoid schizophrenia with acute exacerbation, rule out dementia with psychosis, medical weakness, failure to thrive, neuropathy, psychosocial stressors, financial. PLAN: Plan is to add Haldol Decanoate 100 mg every two weeks to reduce agitation and psychosis. Provide him with 15 to 20 minutes of supportive therapy and behavioral management. Encouragement him to interact appropriately with staff. Also increase his Ativan to 1 mg IM every 6 hours as needed anxiety and agitation and continues to be followed by Psychiatry throughout hospital course. Chart reviewed. Discussed with staff. Seen and assessed at bedside. I would like to thank Dr. Cam Díaz for this interesting consultation. Veronica Rivera M.D. DR: Haley JOB#: [id number] CC:
[2017-12-25] VITALS: BP 124/80
[2017-12-25 04:00] VITALS: BP 126/71
[2017-12-25] MEDS: Solu-MEDROL 125mg Inj IV SCH ×3 (05:11→18:00)
[2017-12-25] MEDS: NovoLOG Insulin Flexpen SUBQ SCH ×4 (05:11→20:37)
[2017-12-25 08:00] VITALS: BP 121/65
--- NOTE | 2017-12-25 08:09 | General Progress Note ---
Assessment/Plan Problem List: (1) UTI (urinary tract infection) ICD Codes: N39.0 - Urinary tract infection, site not specified SNOMED: 91103726 (2) Cerebrovascular accident (CVA) ICD Codes: I63.9 - Cerebral infarction, unspecified SNOMED: 284310043 (3) COPD exacerbation ICD Codes: J44.1 - Chronic obstructive pulmonary disease with (acute) exacerbation SNOMED: 074952256 (4) Dementia ICD Codes: F03.90 - Unspecified dementia without behavioral disturbance SNOMED: 52263576 (5) FTT (failure to thrive) in adult ICD Codes: R62.7 - Adult failure to thrive SNOMED: 591869617 Status: unchanged Assessment/Plan o2 pulm tx abx ot pt diet cbc bmp am dc plan if clear Subjective Allergies: Coded Allergies: No Known Allergies (Unverified , 12/21/17) All Systems: reviewed and negative except above Subjective sleepy calm in bed Objective Last 24 Hour Vital Signs Date Time Temp Pulse Resp B/P (MAP) Pulse Ox O2 Delivery O2 Flow Rate FiO2 12/25/17 04:00 97.1 60 20 126/71 95 Room Air 97.1 12/25/17 00:00 97.0 95 20 124/80 98 Room Air 97.0 12/24/17 20:00 97.3 73 20 143/87 99 Room Air 97.3 12/24/17 20:00 78 18 Room Air 21 12/24/17 16:00 97.7 48 20 119/74 97 97.7 12/24/17 12:00 98.2 77 20 121/73 95 98.2 Intake and Output 12/24/17 12/25/17 19:00 07:00 Intake Total 722.5 ml 150 ml Balance 722.5 ml 150 ml Intake Oral 480 ml 150 ml IV Total 242.5 ml # Voids 3 3 # Bowel Movements 1 Height (Feet): 5 Height (Inches): 7.00 Weight (Pounds): 145 General Appearance: lethargic EENT: normal ENT inspection Neck: normal alignment Cardiovascular: normal peripheral pulses, normal rate, regular rhythm Respiratory/Chest: decreased breath sounds Abdomen: normal bowel sounds, non tender, soft Extremities: normal inspection Edema: no edema noted Arm (L), no edema noted Arm (R), no edema noted Leg (L), no edema noted Leg (R), no edema noted Pedal (L), no edema noted Pedal (R), no edema noted Generalized Neurologic: motor weakness Skin: normal pigmentation, warm/dry NICOLE REHMAN Dec 25, 2017 08:09
[2017-12-25] MEDS: Heparin 5000 units/ml inj SUBQ SCH ×2 (09:00→20:38)
[2017-12-25] MEDS: Depakote 500mg tab ORAL SCH ×3 (09:00→18:45)
--- NOTE | 2017-12-25 09:10 | Infectious Diseases Prog Note ---
Assessment/Plan Assessment/Plan A: COPD exacerbation Paranoid schizophrenia DM HPN P; Change antibiotic to PO Levaquin Subjective ROS Limited/Unobtainable: Yes Cardiovascular: Reports: other - no IV access Neurologic: Reports: confusion, other - on restraint Allergies: Coded Allergies: No Known Allergies (Unverified , 12/21/17) Objective Vital Signs Last 24 Hour Vital Signs Date Time Temp Pulse Resp B/P (MAP) Pulse Ox O2 Delivery O2 Flow Rate FiO2 12/25/17 08:18 58 20 Room Air 12/25/17 08:00 97.7 63 20 121/65 95 97.7 12/25/17 04:00 97.1 60 20 126/71 95 Room Air 97.1 12/25/17 00:00 97.0 95 20 124/80 98 Room Air 97.0 12/24/17 20:00 97.3 73 20 143/87 99 Room Air 97.3 12/24/17 20:00 78 18 Room Air 21 12/24/17 16:00 97.7 48 20 119/74 97 97.7 12/24/17 12:00 98.2 77 20 121/73 95 98.2 Height (Feet): 5 Height (Inches): 7.00 Weight (Pounds): 145 General Appearance: no acute distress HEENT: mucous membranes moist Respiratory/Chest: lungs clear Cardiovascular: normal rate Abdomen: soft, non tender Extremities: no edema Neurologic/Psychiatric: alert, disoriented Current Medications Medications (Trade) Dose Ordered Sig/Sneha Route PRN Reason Start Time Stop Time Status Last Admin Dose Admin Albuterol/ Ipratropium (Albuterol/ Ipratropium) 3 ml Q4H PRN HHN dyspnea 12/22/17 17:00 12/27/17 16:59 Azithromycin (Zithromax) 250 mg DAILY ORAL 12/24/17 09:00 12/31/17 08:59 Ceftriaxone Sodium 1 gm/ Sodium Chloride 55 ml @ 110 mls/hr DAILY IVPB 12/23/17 15:00 12/30/17 14:59 12/24/17 09:36 Dextrose (Dextrose 50%) STAT PRN IV Hypoglycemia 12/22/17 16:00 01/21/18 15:59 Divalproex Sodium (Depakote) 500 mg TID ORAL 12/22/17 18:00 01/21/18 08:59 12/24/17 09:36 Haloperidol Decanoate (Haldol) 100 mg [id number] IM 12/24/17 16:00 01/23/18 15:59 12/24/17 16:01 Haloperidol Lactate (Haldol) 5 mg Q12HR IM 12/22/17 21:00 01/21/18 20:59 12/24/17 20:23 Heparin Sodium (Porcine) (Heparin 5000 units/ml) 5,000 units EVERY 12 HOURS SUBQ 12/22/17 21:00 01/21/18 08:59 12/24/17 20:36 Insulin Aspart (NovoLOG) BEFORE MEALS AND HS SUBQ 12/22/17 17:30 01/21/18 17:29 12/24/17 16:58 Lorazepam (Ativan 2mg/ml 1ml) 1 mg Q6H PRN IM Anxiety if no IV access 12/24/17 16:00 12/31/17 15:59 Lorazepam (Ativan 2mg/ml 1ml) 1 mg Q6H PRN IV For Anxiety 12/24/17 15:30 12/31/17 15:29 Methylprednisolone Sodium Succinate (Solu-MEDROL) 60 mg EVERY 6 HOURS IV 12/22/17 18:00 01/21/18 00:00 12/24/17 05:44 Mirtazapine (Remeron) 15 mg BEDTIME ORAL 12/22/17 21:00 01/21/18 20:59 12/23/17 20:54 Morphine Sulfate (Morphine Sulfate) 2 mg Q4H PRN IVP Severe Pain (Pain Scale 7-10) 12/22/17 17:00 12/29/17 16:59 Nitroglycerin (Ntg) 0.4 mg Q5M X 3 DOSES PRN SL Prn Chest Pain 12/22/17 16:00 01/20/18 22:14 Ondansetron HCl (Zofran) 4 mg Q6H PRN IVP Nausea & Vomiting 12/22/17 16:15 01/20/18 22:14 Promethazine HCl/ Codeine (Phenergan with Codeine) 5 ml Q6H PRN ORAL cough 12/22/17 18:00 01/21/18 17:59 12/23/17 17:49 Sodium Chloride 1,000 ml @ 75 mls/hr [id number] IV 12/22/17 16:00 01/21/18 07:59 12/23/17 23:58 Temazepam (Restoril) 15 mg HSPRN PRN ORAL Insomnia 12/22/17 21:00 12/28/17 20:59 Theophylline (Caden-Dur) 100 mg EVERY 12 HOURS ORAL 12/22/17 21:00 01/21/18 08:59 12/23/17 20:54 NATASHA FLORES Dec 25, 2017 09:10
[2017-12-25] MEDS: Theophylline ER 100mg ORAL SCH ×2 (10:17→20:39)
[2017-12-25] MEDS: Haloperidol 5mg/ml Inj IM SCH ×2 (10:22→20:38)
[2017-12-25 12:00] VITALS: BP 131/78
--- NOTE | 2017-12-25 15:39 | Cardiology Report ---
APPROVED REPORT EKG Measurement Heart [id number] SD [id number] Normal sinus rhythm Normal ECG
[2017-12-25 16:00] VITALS: BP 139/76
--- NOTE | 2017-12-25 17:43 | Pulmonology Progress Note ---
Assessment/Plan Problems: (1) COPD exacerbation (2) FTT (failure to thrive) in adult (3) Dementia (4) Cerebrovascular accident (CVA) Assessment/Plan all reviewed no new complaint respiratory treatment iv abx titrate fio2 to sat of 92% chest pt incentive spirometry check sputum dvt prophylaxis aspiration precaution. Subjective ROS Limited/Unobtainable: No Interval Events: no new complains Allergies: Coded Allergies: No Known Allergies (Unverified , 12/21/17) Objective Last 24 Hour Vital Signs Date Time Temp Pulse Resp B/P (MAP) Pulse Ox O2 Delivery O2 Flow Rate FiO2 12/25/17 16:00 98.1 80 19 139/76 98 98.1 12/25/17 12:00 69 20 131/78 96 12/25/17 08:18 58 20 Room Air 12/25/17 08:00 Room Air 12/25/17 08:00 97.7 63 20 121/65 95 97.7 12/25/17 04:00 97.1 60 20 126/71 95 Room Air 97.1 12/25/17 00:00 97.0 95 20 124/80 98 Room Air 97.0 12/24/17 20:00 97.3 73 20 143/87 99 Room Air 97.3 12/24/17 20:00 78 18 Room Air 21 Intake and Output 12/24/17 12/25/17 19:00 07:00 Intake Total 722.5 ml 150 ml Balance 722.5 ml 150 ml Intake Oral 480 ml 150 ml IV Total 242.5 ml # Voids 3 3 # Bowel Movements 1 Objective General Appearance: no apparent distress Head: normocephalic, atraumatic Eyes: bilateral eye PERRL, bilateral eye EOMI ENT: normal pharynx, no angioedema Neck: supple, thyroid normal Respiratory: lungs clear, +rhonchi Cardiovascular #1: regular rate, rhythm Gastrointestinal: non tender, soft Current Medications Medications (Trade) Dose Ordered Sig/Sneha Route PRN Reason Start Time Stop Time Status Last Admin Dose Admin Albuterol/ Ipratropium (Albuterol/ Ipratropium) 3 ml Q4H PRN HHN dyspnea 12/22/17 17:00 12/27/17 16:59 Dextrose (Dextrose 50%) STAT PRN IV Hypoglycemia 12/22/17 16:00 01/21/18 15:59 Divalproex Sodium (Depakote) 500 mg TID ORAL 12/22/17 18:00 01/21/18 08:59 12/24/17 09:36 Haloperidol Decanoate (Haldol) 100 mg [id number] IM 12/24/17 16:00 01/23/18 15:59 12/24/17 16:01 Haloperidol Lactate (Haldol) 5 mg Q12HR IM 12/22/17 21:00 01/21/18 20:59 12/25/17 10:22 Heparin Sodium (Porcine) (Heparin 5000 units/ml) 5,000 units EVERY 12 HOURS SUBQ 12/22/17 21:00 01/21/18 08:59 12/24/17 20:36 Insulin Aspart (NovoLOG) BEFORE MEALS AND HS SUBQ 12/22/17 17:30 01/21/18 17:29 12/24/17 16:58 Levofloxacin (Levaquin) 750 mg DAILY ORAL 12/25/17 10:00 01/01/18 09:59 12/25/17 10:17 Lorazepam (Ativan 2mg/ml 1ml) 1 mg Q6H PRN IM Anxiety if no IV access 12/24/17 16:00 12/31/17 15:59 Lorazepam (Ativan 2mg/ml 1ml) 1 mg Q6H PRN IV For Anxiety 12/24/17 15:30 12/31/17 15:29 Methylprednisolone Sodium Succinate (Solu-MEDROL) 60 mg EVERY 6 HOURS IV 12/22/17 18:00 01/21/18 00:00 12/24/17 05:44 Mirtazapine (Remeron) 15 mg BEDTIME ORAL 12/22/17 21:00 01/21/18 20:59 12/23/17 20:54 Morphine Sulfate (Morphine Sulfate) 2 mg Q4H PRN IVP Severe Pain (Pain Scale 7-10) 12/22/17 17:00 12/29/17 16:59 Nitroglycerin (Ntg) 0.4 mg Q5M X 3 DOSES PRN SL Prn Chest Pain 12/22/17 16:00 01/20/18 22:14 Ondansetron HCl (Zofran) 4 mg Q6H PRN IVP Nausea & Vomiting 2/22/18 16:15 01/20/18 22:14 Promethazine HCl/ Codeine (Phenergan with Codeine) 5 ml Q6H PRN ORAL cough 12/22/17 18:00 01/21/18 17:59 12/23/17 17:49 Sodium Chloride 1,000 ml @ 75 mls/hr [id number] IV 12/22/17 16:00 01/21/18 07:59 12/23/17 23:58 Temazepam (Restoril) 15 mg HSPRN PRN ORAL Insomnia 12/22/17 21:00 12/28/17 20:59 Theophylline (Caden-Dur) 100 mg EVERY 12 HOURS ORAL 12/22/17 21:00 01/21/18 08:59 12/25/17 10:17 ARASH VELIZ Dec 25, 2017 17:43
[2017-12-25 20:00] VITALS: BP 143/72
[2017-12-26] VITALS: BP 138/85
[2017-12-26 04:00] VITALS: BP 145/81
[2017-12-26] MEDS: NovoLOG Insulin Flexpen SUBQ SCH ×2 (05:37→12:16)
[2017-12-26] MEDS: Solu-MEDROL 125mg Inj IV SCH ×3 (05:37→12:46)
--- NOTE | 2017-12-26 06:30 | Progress Note ---
DATE: 12/25/2017 NOTE: POOR AUDIO SUBJECTIVE: The patient is a 67-year-old male patient with weakness and failure to thrive. This patient continues to have extreme agitation and irritability. He is in 2-point restraints, extremely mood labile, agitated, and irritable. He has no logical plan for his own self-care. . MENTAL STATUS EXAMINATION: This is a 67-year-old male with psychomotor agitation. Mood is irritable and agitated. Affect guarded and restricted. Thought process, disorganized and illogical thoughts. Appearance is disheveled. Attitude is irritable and agitated. Affect guarded and restricted. Intellect poor. Mood depressed and anxious. Motor activity, psychomotor agitation. Attention span is poor. Orientation x2. Speech is pressured. Thought process, disorganized and illogical. Thought content, auditory hallucinations and paranoid delusions. Insight and judgment is poor. DIAGNOSIS: . PLAN: Change in meds. Haldol Decanoate 100 mg IM every two weeks and Ativan 1 every six hours p.r.n. anxiety and agitation. A 15 to 20 minutes of supportive therapy provided. Chart reviewed. Discussed with staff. Seen and assessed at bedside. Veronica Rivera M.D. DR: KIYA JOB#: [id number] CC:
[2017-12-26 07:28] LABS: BASOPHILS % (AUTO) 1.1 % (0.0-2.0); HEMATOCRIT 40.2 % (42.0-52.0); HEMOGLOBIN 13.8 G/DL (14.2-18.0); LYMPHOCYTES % (AUTO) 35.1 % (20.0-45.0); MEAN CORPUSCULAR VOLUME 85 FL (80-99); MONOCYTES % (AUTO) 9.4 % (1.0-10.0); NEUTROPHILS % (AUTO) 52.5 % (45.0-75.0); PLATELET COUNT 246 K/UL (150-450); RED BLOOD COUNT 4.72 M/UL (4.70-6.10); RED CELL DISTRIBUTION WIDTH 14.2 % (11.6-14.8); WHITE BLOOD COUNT 6.2 K/UL (4.8-10.8)
[2017-12-26 07:45] VITALS: BP 100/69
[2017-12-26 07:47] LABS: ANION GAP 5 mmol/L (5-15); BLOOD UREA NITROGEN 22 mg/dL (7-18); CALCIUM 8.3 MG/DL (8.5-10.1); CARBON DIOXIDE 31 MMOL/L (21-32); CHLORIDE 104 MMOL/L (98-107); CREATININE 0.5 MG/DL (0.55-1.30); POTASSIUM 3.8 MMOL/L (3.5-5.1); SODIUM 139 MMOL/L (136-145)
[2017-12-26] MEDS: Haloperidol 5mg/ml Inj IM SCH (08:53)
[2017-12-26] MEDS: Theophylline ER 100mg ORAL SCH ×2 (08:53→09:00)
[2017-12-26] MEDS: Depakote 500mg tab ORAL SCH ×3 (08:53→12:50)
[2017-12-26] MEDS: Heparin 5000 units/ml inj SUBQ SCH (08:55)
[2017-12-26 11:49] VITALS: BP 106/66
--- NOTE | 2017-12-26 12:36 | Infectious Diseases Prog Note ---
Assessment/Plan Assessment/Plan A: COPD exacerbation Paranoid schizophrenia DM HPN P; Continue PO Levaquin Subjective ROS Limited/Unobtainable: Yes Neurologic: Reports: confusion, other - on restraint Allergies: Coded Allergies: No Known Allergies (Unverified , 12/21/17) Objective Vital Signs Last 24 Hour Vital Signs Date Time Temp Pulse Resp B/P (MAP) Pulse Ox O2 Delivery O2 Flow Rate FiO2 12/26/17 11:49 98.3 57 20 106/66 93 Room Air 98.3 12/26/17 08:22 62 20 Room Air 21 12/26/17 07:45 98.0 72 20 100/69 91 Room Air 98.0 12/26/17 04:00 97.5 79 18 145/81 99 Room Air 97.5 12/26/17 00:00 97.7 74 18 138/85 97 Room Air 97.7 12/25/17 20:00 97.6 76 18 143/72 96 Room Air 97.6 12/25/17 19:00 68 20 Room Air 21 12/25/17 16:00 Room Air 12/25/17 16:00 98.1 80 19 139/76 98 98.1 Height (Feet): 5 Height (Inches): 7.00 Weight (Pounds): 145 General Appearance: no acute distress HEENT: mucous membranes moist Respiratory/Chest: lungs clear Cardiovascular: normal rate Abdomen: soft, non tender Extremities: no edema Neurologic/Psychiatric: other - sleeping Laboratory Tests Test 12/26/17 04:50 White Blood Count 6.2 K/UL (4.8-10.8) Red Blood Count 4.72 M/UL (4.70-6.10) Hemoglobin 13.8 G/DL (14.2-18.0) L Hematocrit 40.2 % (42.0-52.0) L Mean Corpuscular Volume 85 FL (80-99) Mean Corpuscular Hemoglobin 29.3 PG (27.0-31.0) Mean Corpuscular Hemoglobin Concent 34.3 G/DL (32.0-36.0) Red Cell Distribution Width 14.2 % (11.6-14.8) Platelet Count 246 K/UL (150-450) Mean Platelet Volume 6.2 FL (6.5-10.1) L Neutrophils (%) (Auto) 52.5 % (45.0-75.0) Lymphocytes (%) (Auto) 35.1 % (20.0-45.0) Monocytes (%) (Auto) 9.4 % (1.0-10.0) Eosinophils (%) (Auto) 2.0 % (0.0-3.0) Basophils (%) (Auto) 1.1 % (0.0-2.0) Sodium Level 139 MMOL/L (136-145) Potassium Level 3.8 MMOL/L (3.5-5.1) Chloride Level 104 MMOL/L (98-107) Carbon Dioxide Level 31 MMOL/L (21-32) Anion Gap 5 mmol/L (5-15) Blood Urea Nitrogen 22 mg/dL (7-18) H Creatinine 0.5 MG/DL (0.55-1.30) L Estimat Glomerular Filtration Rate > 60 mL/min (>60) Glucose Level 82 MG/DL (74-106) Calcium Level 8.3 MG/DL (8.5-10.1) L Current Medications Medications (Trade) Dose Ordered Sig/Sneha Route PRN Reason Start Time Stop Time Status Last Admin Dose Admin Albuterol/ Ipratropium (Albuterol/ Ipratropium) 3 ml Q4H PRN HHN dyspnea 12/22/17 17:00 12/27/17 16:59 Dextrose (Dextrose 50%) STAT PRN IV Hypoglycemia 12/22/17 16:00 01/21/18 15:59 Divalproex Sodium (Depakote) 500 mg TID ORAL 12/22/17 18:00 01/21/18 08:59 12/25/17 18:45 Haloperidol Decanoate (Haldol) 100 mg [id number] IM 12/24/17 16:00 01/23/18 15:59 12/24/17 16:01 Haloperidol Lactate (Haldol) 5 mg Q12HR IM 12/22/17 21:00 01/21/18 20:59 12/26/17 08:53 Heparin Sodium (Porcine) (Heparin 5000 units/ml) 5,000 units EVERY 12 HOURS SUBQ 12/22/17 21:00 01/21/18 08:59 12/26/17 08:55 Insulin Aspart (NovoLOG) BEFORE MEALS AND HS SUBQ 12/22/17 17:30 01/21/18 17:29 12/25/17 20:37 Levofloxacin (Levaquin) 750 mg DAILY ORAL 12/25/17 10:00 01/01/18 09:59 12/25/17 10:17 Lorazepam (Ativan 2mg/ml 1ml) 1 mg Q6H PRN IM Anxiety if no IV access 12/24/17 16:00 12/31/17 15:59 12/25/17 23:42 Lorazepam (Ativan 2mg/ml 1ml) 1 mg Q6H PRN IV For Anxiety 12/24/17 15:30 12/31/17 15:29 Methylprednisolone Sodium Succinate (Solu-MEDROL) 60 mg EVERY 6 HOURS IV 12/22/17 18:00 01/21/18 00:00 12/24/17 05:44 Mirtazapine (Remeron) 15 mg BEDTIME ORAL 12/22/17 21:00 01/21/18 20:59 12/23/17 20:54 Morphine Sulfate (Morphine Sulfate) 2 mg Q4H PRN IVP Severe Pain (Pain Scale 7-10) 12/22/17 17:00 12/29/17 16:59 Nitroglycerin (Ntg) 0.4 mg Q5M X 3 DOSES PRN SL Prn Chest Pain 12/22/17 16:00 01/20/18 22:14 Ondansetron HCl (Zofran) 4 mg Q6H PRN IVP Nausea & Vomiting 12/22/17 16:15 01/20/18 22:14 Promethazine HCl/ Codeine (Phenergan with Codeine) 5 ml Q6H PRN ORAL cough 12/22/17 18:00 01/21/18 17:59 12/23/17 17:49 Sodium Chloride 1,000 ml @ 75 mls/hr [id number] IV 12/22/17 16:00 01/21/18 07:59 12/23/17 23:58 Temazepam (Restoril) 15 mg HSPRN PRN ORAL Insomnia 12/22/17 21:00 12/28/17 20:59 Theophylline (Caden-Dur) 100 mg EVERY 12 HOURS ORAL 12/22/17 21:00 01/21/18 08:59 12/25/17 10:17 NATASHA FLORES Dec 26, 2017 12:36
--- NOTE | 2017-12-26 14:03 | General Progress Note ---
Assessment/Plan Problem List: (1) UTI (urinary tract infection) ICD Codes: N39.0 - Urinary tract infection, site not specified SNOMED: 73568296 (2) Cerebrovascular accident (CVA) ICD Codes: I63.9 - Cerebral infarction, unspecified SNOMED: 703697503 (3) COPD exacerbation ICD Codes: J44.1 - Chronic obstructive pulmonary disease with (acute) exacerbation SNOMED: 103635492 (4) Dementia ICD Codes: F03.90 - Unspecified dementia without behavioral disturbance SNOMED: 07783000 (5) FTT (failure to thrive) in adult ICD Codes: R62.7 - Adult failure to thrive SNOMED: 082979098 Status: unchanged Assessment/Plan o2 pulm tx abx ot pt diet cbc bmp am dc plan Subjective Constitutional: Reports: weakness Allergies: Coded Allergies: No Known Allergies (Unverified , 12/21/17) All Systems: reviewed and negative except above Subjective sleepy calm in bed Objective Last 24 Hour Vital Signs Date Time Temp Pulse Resp B/P (MAP) Pulse Ox O2 Delivery O2 Flow Rate FiO2 12/26/17 11:49 98.3 57 20 106/66 93 Room Air 98.3 12/26/17 08:22 62 20 Room Air 21 12/26/17 07:45 98.0 72 20 100/69 91 Room Air 98.0 12/26/17 04:00 97.5 79 18 145/81 99 Room Air 97.5 12/26/17 00:00 97.7 74 18 138/85 97 Room Air 97.7 12/25/17 20:00 97.6 76 18 143/72 96 Room Air 97.6 12/25/17 19:00 68 20 Room Air 21 12/25/17 16:00 Room Air 12/25/17 16:00 98.1 80 19 139/76 98 98.1 Intake and Output 12/25/17 12/26/17 19:00 07:00 Intake Total 240 ml Balance 240 ml Intake Oral 240 ml # Voids 3 6 Laboratory Tests 12/26/17 04:50: White Blood Count 6.2, Red Blood Count 4.72, Hemoglobin 13.8L, Hematocrit 40.2L , Mean Corpuscular Volume 85, Mean Corpuscular Hemoglobin 29.3, Mean Corpuscular Hemoglobin Concent 34.3, Red Cell Distribution Width 14.2, Platelet Count 246, Mean Platelet Volume 6.2L, Neutrophils (%) (Auto) 52.5, Lymphocytes ( %) (Auto) 35.1, Monocytes (%) (Auto) 9.4, Eosinophils (%) (Auto) 2.0, Basophils (%) (Auto) 1.1, Sodium Level 139, Potassium Level 3.8, Chloride Level 104, Carbon Dioxide Level 31, Anion Gap 5, Blood Urea Nitrogen 22H, Creatinine 0.5L, Estimat Glomerular Filtration Rate > 60, Glucose Level 82, Calcium Level 8.3L Height (Feet): 5 Height (Inches): 7.00 Weight (Pounds): 145 General Appearance: lethargic EENT: normal ENT inspection Neck: normal alignment Cardiovascular: normal peripheral pulses, normal rate, regular rhythm Respiratory/Chest: chest wall non-tender, lungs clear, normal breath sounds Abdomen: normal bowel sounds, non tender, soft Extremities: normal inspection Edema: no edema noted Arm (L), no edema noted Arm (R), no edema noted Leg (L), no edema noted Leg (R), no edema noted Pedal (L), no edema noted Pedal (R), no edema noted Generalized Neurologic: motor weakness Skin: normal pigmentation, warm/dry NICOLE REHMAN Dec 26, 2017 14:03
[2017-12-26] MEDS ORDERED: THEOPHYLLINE A100 MG ORAL (14:10)
[2017-12-26] MEDS ORDERED: TEMAZEPAM15 MG ORAL (14:12)
[2017-12-26] MEDS ORDERED: PROMETHAZINE-C118 M1 ORAL (14:14)
[2017-12-26] MEDS ORDERED: NITROGLYCERIN0.4 MG SL (14:17)
[2017-12-26] MEDS ORDERED: DEPAKOTE ER500 MG ORAL (14:21)
[2017-12-26] MEDS ORDERED: HALOPERIDOL5 MG/1 M1 IJ ×2 (14:24→14:26)
[2017-12-26] MEDS ORDERED: HALDOL INJECT5 MG/ML IM (14:26)
[2017-12-26] MEDS ORDERED: NOVOLOG100 UNIT/3 SUBQ (14:29)
[2017-12-26] MEDS ORDERED: LEVOFLOXACIN250 MG ORAL (14:30)
[2017-12-26] MEDS ORDERED: HEPARIN SO5000 UNIT2 SUBQ ×2 (14:31→14:32)
[2017-12-26] MEDS ORDERED: LORAZEPAM1 MG IM (14:34)
[2017-12-26] MEDS ORDERED: LORAZEPAM2 MG/1 M4 IM (14:36)
[2017-12-26] MEDS ORDERED: ATIVAN2 MG/ML IM (14:37)
--- NOTE | 2017-12-26 17:32 | Pulmonology Progress Note ---
Assessment/Plan Problems: (1) COPD exacerbation (2) FTT (failure to thrive) in adult (3) Dementia (4) Cerebrovascular accident (CVA) Assessment/Plan eating wee. no new complaint respiratory treatment iv abx titrate fio2 to sat of 92% chest pt incentive spirometry check sputum dvt prophylaxis aspiration precaution. dc planning Subjective ROS Limited/Unobtainable: No Allergies: Coded Allergies: No Known Allergies (Unverified , 12/21/17) Objective Last 24 Hour Vital Signs Date Time Temp Pulse Resp B/P (MAP) Pulse Ox O2 Delivery O2 Flow Rate FiO2 12/26/17 11:49 98.3 57 20 106/66 93 Room Air 98.3 12/26/17 08:22 62 20 Room Air 21 12/26/17 07:45 98.0 72 20 100/69 91 Room Air 98.0 12/26/17 04:00 97.5 79 18 145/81 99 Room Air 97.5 12/26/17 00:00 97.7 74 18 138/85 97 Room Air 97.7 12/25/17 20:00 97.6 76 18 143/72 96 Room Air 97.6 12/25/17 19:00 68 20 Room Air 21 Intake and Output 12/25/17 12/26/17 19:00 07:00 Intake Total 240 ml Balance 240 ml Intake Oral 240 ml # Voids 3 6 Objective General Appearance: no apparent distress Head: normocephalic, atraumatic Eyes: bilateral eye PERRL, bilateral eye EOMI ENT: normal pharynx, no angioedema Neck: supple, thyroid normal Respiratory: lungs clear, +rhonchi Cardiovascular #1: regular rate, rhythm Gastrointestinal: non tender, soft Laboratory Tests 12/26/17 04:50: White Blood Count 6.2, Red Blood Count 4.72, Hemoglobin 13.8L, Hematocrit 40.2L , Mean Corpuscular Volume 85, Mean Corpuscular Hemoglobin 29.3, Mean Corpuscular Hemoglobin Concent 34.3, Red Cell Distribution Width 14.2, Platelet Count 246, Mean Platelet Volume 6.2L, Neutrophils (%) (Auto) 52.5, Lymphocytes ( %) (Auto) 35.1, Monocytes (%) (Auto) 9.4, Eosinophils (%) (Auto) 2.0, Basophils (%) (Auto) 1.1, Sodium Level 139, Potassium Level 3.8, Chloride Level 104, Carbon Dioxide Level 31, Anion Gap 5, Blood Urea Nitrogen 22H, Creatinine 0.5L, Estimat Glomerular Filtration Rate > 60, Glucose Level 82, Calcium Level 8.3L ARASH VELIZ Dec 26, 2017 17:32
--- NOTE | 2017-12-27 08:30 | Progress Note ---
DATE: 12/26/2017 SUBJECTIVE: The patient is a 67-year-old patient with weakness and failure to thrive. This patient is confused and disorganized. Mood labile. He has no logical plan for his own self-care. This patient is currently on sedation. Has failure to thrive, extremely agitated, irritable. Needs constant observation of one-to-one to manage his behavior. MENTAL STATUS EXAMINATION: This is a 67-year-old male with psychomotor agitation. Mood is irritable and agitated. Affect guarded and restricted. Thought process, disorganized and illogical. No suicidal ideation. Insight and judgment are poor. DIAGNOSIS: Paranoid schizophrenia with acute exacerbation. PLAN: Continue to start treatment with IM Haldol, long-acting, to reduce psychosocial to stabilize his mood. A 15 to 20 minutes of supportive therapy provided. Chart reviewed. Discussed with staff. Seen and assessed at bedside. Veronica Rivera M.D. DR: KIYA JOB#: [id number] CC:
--- NOTE | 2017-12-29 10:44 | Discharge Summary ---
Discharge Summary Hospital Course Date of Admission Dec 21, 2017 at 21:13 Date of Discharge Dec 26, 2017 at 15:36 Admitting Diagnosis WEAKNESS/FAILURE TO THRIVE HPI Johnnie Perez is a 67 year old male who was admitted on Dec 21, 2017 at 21:13 for Weakness/Failure To Thrive Hospital Course dc summary #[id number] Discharge Medications Continued Medications: Codeine/Promethazine Hcl* (Promethazine-Codeine Syrup*) 118 Ml Syrup 5 ML ORAL Q6H PRN for For Cough, ML 0 Refills Divalproex Sodium* (Depakote Er*) 500 Mg Tab.er.24h 500 MG ORAL TID, TAB Haloperidol Lactate (Haloperidol Lactate) 5 Mg/1 Ml Vial 5 MG IM Q12HR, VIAL Heparin Sod (Porcine) (Heparin Sodium*) 5 000/1 Ml Vial 5000 UNITS SUBQ EVERY 12 HOURS, VIAL Insulin Aspart* (Novolog*) 100 Unit/1 Ml Insuln.pen 0 SUBQ AC+HS, #1 EA 0 Refills Levofloxacin (Levofloxacin*) 250 Mg Tablet 750 MG ORAL DAILY, TAB Lorazepam (Lorazepam) 2 Mg/1 Ml Syringe 1 MG IM Q6H PRN for For Anxiety, MG Mirtazapine* (Remeron*) 15 Mg Tablet 15 MG ORAL BEDTIME, TAB Nitroglycerin (Nitroglycerin) 0.4 Mg Tab.subl 0.4 MG SL [id number] for chest pain, TAB Temazepam (Temazepam*) 15 Mg Capsule 15 MG ORAL BEDTIME PRN for Insomnia, #30 CAP 0 Refills Theophylline (Theodur*) 100 Mg Tab.er.12h 100 MG ORAL TWICE A DAY, #30 TAB 0 Refills Discharge Condition Upon Discharge: stable Discharge Disposition Patient was discharged to SNF/Subacute Facility(03) Discharge Diagnoses: Discharge Instructions Discharge Instructions Special Instructions I have been assigned to complete a D/C Summary on this account. I was not involved in the patient management Padmaja Carlisle NP ([place]) Dec 29, 2017 10:44
--- NOTE | 2017-12-30 06:30 | Discharge Summary 2 SIG ---
DATE OF ADMISSION: 12/21/2017 DATE OF DISCHARGE: 12/26/2017 REASON FOR ADMISSION: 67-year-old male with past medical history of COPD, seizure disorder, bipolar disorder, schizoaffective disorder, history of CVA, hypertension, diabetes, was sent from the custodial facility for evaluation of altered mental status. The patient had audible wheezing on presentation. Troponin was negative. Chest x-ray negative. EKG revealed normal sinus rhythm. Urinalysis negative. Influenza screen test negative. The patient was admitted with COPD exacerbation and failure to thrive. HOSPITAL COURSE: The patient admitted. Pulmonology, ID, and Psychiatric consults were requested. The patient started on supplemental oxygen, which was and titrated as needed to keep pulse oximetry above 92%. Pulmonary toilet in the form of handheld nebulizing with bronchodilator and chest physiotherapy was provided. Incentive spirometer was on the bedside, the patient was taught and encouraged to use it. The patient started on the IV steroids with gradual tapering. The patient started on empiric antibiotics. Unable to collect sputum culture since cough was dry. Antitussive provided as needed. Trial of theophylline instituted. DVT prophylaxis provided. The patient had undergone swallow evaluation due to the history of CVA , which revealed [id number] degree of dysphagia. Diet was downgraded as per speech therapist's recommendations. Aspiration precautions were maintained with one-to-one supervision. The patient was working with physical and occupational therapists. Blood pressure and blood sugar were managed and remained stable. Psychiatrist had seen and evaluated the patient, diagnosed the patient with paranoid schizophrenia with acute exacerbation, and optimized psychiatric medication regimen. The patient was stable for discharge. FINAL DIAGNOSES: 1. COPD exacerbation. 2. Paranoid schizophrenia with acute exacerbation. 3. Failure to thrive. 4. Hypertension. 5. Diabetes. 6. Dementia. 7. History of CVA. DISCHARGE MEDICATIONS: See medication reconciliation list. DISCHARGE INSTRUCTIONS: The patient discharged to custodial facility. Follow up with medical doctor at the facility. Recommended to follow up with psychiatrist as an outpatient. Cam Díaz D.O. I have been assigned to dictate discharge summary on this account and I was not involved in the patient's management. Padmaja Eldiego NNishaPNisha DR: Gregg JOB#: [id number] CC: SAVANNA
== END 2017-12-26 15:36 | DRG 190 ==
LOC: EDBD 19:40 → EMR 20:00 → EDBEDREQSVC 20:33 → EDBEDREQ 20:33 → EDBEDREQTM 20:33 → 2E 21:13 → EDBEDREQ 22:21 → 4W 12-22 15:26
DX: J44.1 Chronic obstructive pulmonary disease with (acute) exacerbation (principal); G93.40 Encephalopathy, unspecified; F20.0 Paranoid schizophrenia; N39.0 Urinary tract infection, site not specified; F03.90 Unspecified dementia, unspecified severity, without behavioral disturbance, psychotic disturbance, mood disturbance, and anxiety; R62.7 Adult failure to thrive; Z86.73 Personal history of transient ischemic attack (TIA), and cerebral infarction without residual deficits; Z79.4 Long term (current) use of insulin; I10 Essential (primary) hypertension; E11.9 Type 2 diabetes mellitus without complications; F17.200 Nicotine dependence, unspecified, uncomplicated; G40.909 Epilepsy, unspecified, not intractable, without status epilepticus
CPT/HCPCS: 36415; 71045; 80048; 80053; 81003; 82550; 82962; 84484; 85025; 86710; 87081; 93005; 94640; 94664; 99285; J1815; J7620